=== PATIENT | female | born 1995 | race Caucasian/White ===

== ENCOUNTER → 2020-03-03 | Outpatient (CLI) | payer OTHER ==
--- NOTE | 2020-03-03 15:31 | RADIOLOGY REPORT (SQ) ---
EXAM DESCRIPTION: U/S THYROID/SFT TISS HD NECK IMAGES COMPLETED DATE/TIME: 03/03/2020 1:53 pm REASON FOR STUDY: E07.89 OTHER SPECIFIED DISORDERS OF THYROID J32.8 OTHER CHRONIC SINUSITIS E07.89 OTHER SPECIFIED DISORDERS OF THYROID COMPARISON: None. TECHNIQUE: Dynamic and static bobby-scale images acquired of the thyroid gland. Selected additional c olor/power Doppler images recorded. All images stored to PACS. LIMITATIONS: None. FINDINGS: RIGHT LOBE: The right lobe of the thyroid gland measures 4.2 x 1.2 x 1.1 cm, normal size. Homogeneous echotexture. No cystic or solid masses. LEFT LOBE: The left lobe of the thyroid gland measures 4.11.4 x 1.1 cm, normal size. Homogeneous ec hotexture. No cystic or solid masses. ISTHMUS: The isthmus measures 2.0 mm in AP diameter, normal size. Homogeneous echotexture. No cyst ic or solid masses. OTHER: No other significant finding. IMPRESSION: 1. Examination is unremarkable sonographically. TECHNICAL DOCUMENTATION: JOB ID: [id number] 2010 [employer]- All Rights Reserved Reading location - IP/workstation name: [email or web address]
--- NOTE | 2020-03-04 11:12 | RADIOLOGY REPORT (SQ) ---
EXAM DESCRIPTION: CT SINUSES FOR ENT IMAGES COMPLETED DATE/TIME: 03/03/2020 1:25 pm REASON FOR STUDY: J32.8 OTHER CHRONIC SINUSITIS J32.8 OTHER CHRONIC SINUSITIS E07.89 OTHER SPECIFI ED DISORDERS OF THYROID COMPARISON: None. TECHNIQUE: Noncontrast scanning through the paranasal sinuses using bone algorithm. Reconstructed MPR images reviewed. All images stored on PACS. Images acquired for image guided surgery. All CT scanners at this facility use dose modulation, iterative reconstruction, and/or weight based d osing when appropriate to reduce radiation dose to as low as reasonably achievable (ALARA). [facility]: Dose Right [facility]: CareDose [facility]: Dose Right [facility]: Teradose 4D [facility]: [employer] RADIATION DOSE: mGy. FINDINGS: NASAL PASSAGES: Clear. No polyps or masses. OSTEOMEATAL UNITS AND NASOFRONTAL DUCTS: Patent. MAXILLARY SINUSES: Well-pneumatized and clear. Maxillary sinus outlets are patent. ETHMOID SINUSES: Well-pneumatized and clear. SPHENOID SINUSES: Well-pneumatized and clear. FRONTAL SINUSES: Well-pneumatized and clear. MASTOID AIR CELLS: Clear. ORBITS: Normal and symmetrical. NASAL SEPTUM: Right deviation. TEMPOROMANDIBULAR JOINTS: Normal. TURBINATES: No pneumatized turbinates. OTHER: No other significant findings. IMPRESSION: 1. Generally clear paranasal sinuses. 2. Right nasal septal deviation. TECHNICAL DOCUMENTATION: JOB ID: [id number] Quality ID # [id number]: Final reports with documentation of one or more dose reduction techniques (e.g., Au tomated exposure control, adjustment of the mA and/or kV according to patient size, use of iterative reconstruction technique) 2010 [employer]- All Rights Reserved Reading location - IP/workstation name: [email or web address]
== END ==
LOC: RAD 13:10
PROVIDERS: ATTEND Otolaryngology
DX: J32.8 Other chronic sinusitis (principal); J34.2 Deviated nasal septum; E07.89 Other specified disorders of thyroid
CPT/HCPCS: 70486; 76536

== ENCOUNTER → 2020-04-21 | Outpatient (CLI) | payer OTHER | LOC: OD 09:43 | PROVIDERS: ATTEND Otolaryngology | DX: J30.81 Allergic rhinitis due to animal (cat) (dog) hair and dander (principal) | CPT/HCPCS: 36415; 82785; 86003 ==

== ENCOUNTER 2020-08-24 08:37 | Day surgery (SDC) | payer OTHER ==
[~2020-08-24 08:37] MED LIST: CEFAZOLIN 2 GM/D5W RTU 2 GM/50 ML RTUPB IV PRN
[2020-08-24] MEDS ORDERED: OXYMETAZOLINE HCL 0.05% NASAL SPRAY 15 ML BOTTLE ONE (09:26)
[2020-08-24] MEDS ORDERED: BUPIVACAINE HCL 0.5%/EPI 1:200000 INJ 1.8 ML CARTRIDGE ONE (09:26)
[2020-08-24] MEDS ORDERED: MINERAL OIL (STERILE) 10 ML VIAL ONE (09:26)
[2020-08-24] MEDS ORDERED: LIDOCAINE 1%/EPINEPHRINE INJ 20 ML VIAL ONE (09:26)
[2020-08-24] MEDS ORDERED: BACITRACIN ZINC OINTMENT 15 GM ONE (09:26)
[2020-08-24] MEDS ORDERED: SCOPOLAMINE HYDROBROMIDE 1.5 MG PATCH.TD72 TD ONE (09:30)
[2020-08-24] MEDS ORDERED: PROMETHAZINE HCL INJ 25 MG/1 ML VIAL ONE (09:38)
[2020-08-24] MEDS ORDERED: ONDANSETRON HCL INJ/PF 4 MG/2 ML SDV ONE (09:38)
[2020-08-24] MEDS ORDERED: HYDROMORPHONE HCL INJ/PF 2 MG/ML AMPULE ONE (09:39)
[2020-08-24] MEDS ORDERED: DEXAMETHASONE SOD PHOS INJ 10 MG/1 ML VIAL ONE (09:39)
[2020-08-24] MEDS ORDERED: FENTANYL CITRATE INJ/PF 100 MCG/2 ML AMPUL ONE (09:39)
[2020-08-24] MEDS ORDERED: MIDAZOLAM 2 MG/2 ML INJ ONE (09:39)
[2020-08-24] MEDS ORDERED: PROPOFOL INJ 200 MG/20 ML VIAL IV ONE (09:40)
[2020-08-24] MEDS ORDERED: SUCCINYLCHOLINE CHLORIDE INJ 200 MG/10 ML VIAL ONE (09:40)
[2020-08-24] MEDS ORDERED: PHENYLEPHRINE HCL INJ/PF 10 MG/1 ML SDV ONE (11:58)
[2020-08-24] MEDS: FENTANYL CITRATE INJ/PF 100 MCG/2 ML AMPUL ONE ×2 (13:50→14:00)
--- NOTE | 2020-09-02 23:09 | Operative Report ---
[facility]: DATE OF OPERATION: August 24, 2020 PREOPERATIVE DIAGNOSES: 1. Acute recurrent sinusitis/ARS 2. Nasal septal deviation, Acquired 3. Bilateral inferior turbinate hypertrophy 4. Nasal Deformities, Acquired 5. Chronic Nasal Dyspnea 6. Chronic rhinosinusitis/CRS 7. Bilateral chronic eustachian tube dysfunction 8. Bilateral middle turbinate hypertrophy 9. IOP/intraoperatively identified adenoid tissue hypertrophy and praveena hypertrophy POSTOPERATIVE DIAGNOSES: 1. Acute recurrent sinusitis/ARS 2. Nasal septal deviation, Acquired 3. Bilateral inferior turbinate hypertrophy 4. Nasal Deformities, Acquired 5. Chronic Nasal Dyspnea 6. Chronic rhinosinusitis/CRS 7. Bilateral chronic eustachian tube dysfunction 8. Bilateral middle turbinate hypertrophy 9. IOP/intraoperatively identified adenoid tissue hypertrophy and praveena hypertrophy PROCEDURES: 1. Bilateral FESS/functional endoscopic sinus surgery as follows: 2. Bilateral frontal sinus balloon sinuplasty via bilateral transnasal rigid surgical endoscopy 3. Bilateral maxillary sinus balloon sinuplasty via bilateral transnasal rigid surgical endoscopy 4. ETB/eustachian tube balloon plasty [place] [address] which [place] associated with the CPT code 55906 (a pharynx surgery code) with wRVU of 8.27 per side) and 30529 for rigid nasal surgical endoscopy facilitating ETB/eustachian tube balloon plasty 5. Septoplasty 6. Bilateral intramural inferior turbinate reductions using submucus resection techniques 7. Bilateral middle turbinate reductions 8. IOP/intraoperative decision to perform additional nasopharyngeal/pharynx procedures consisting of adenoid tissue ablation adjacent the Praveena. SURGEON: Dr. Jermain Lynn Anesthesia Staff: ANESTHESIA: General endotracheal tube anesthesia/GETA DRAINS: None SPONGE COUNT: Verified NEEDLE COUNT: Verified SPECIMEN/MATERIALS FORWARD TO THE LAB: None ESTIMATED BLOOD LOSS: TOTAL IV FLUIDS: COMPLICATIONS: None FINDINGS: 1. Moderate to severe nasal septal deviation involving cartilage and bone with bony deviation being severe. 2. There were no sinonasal polyps or drainage noted during surgery. 3. Bilateral middle and inferior turbinate hypertrophy. 4. Praveena and adenoid tissue hypertrophy especially adjacent the Praveena. INDICATIONS: This is a 25-year-old white female patient who was seen and evaluated in the [place] otolaryngology office. The patient was referred for and they complained of a history of acute recurrent and chronic sinusitis/sinus disease over the years, chronic bilateral eustachian tube dysfunction over the years, and chronic nasal dyspnea over the years. The patient has desired to undergo sinonasal and eustachian tube surgery to improve functional nasal a irflow, sinus symptoms, and eustachian tube symptoms, and overall quality of life. The procedure consisting of septoplasty, FESS/functional endoscopic sinus surgery, bilateral eustachian tube balloon plasty/pharyngeal procedures, bilateral nasal surgical endoscopy, and turbinate reductions, and all of the risks and complications were all discussed in detail with the patient. She voiced an understanding, agreed to proceed, and consent was obtained. DESCRIPTION OF OPERATIVE PROCEDURE: The patient was taken to the main operating room and placed on the operating room table in the supine position. Appropriate monitors were placed. Using mask and IV access general anesthesia was induced. The patient was then transorally intubated without difficulty. The table was next positioned for nasal surgery. The patient underwent a nasal examination and local anesthetic with epinephrine was administered to establish a nasal block. The patient next had two Afrin soaked neuropatties placed into each nasal passage. The patient was then prepped and draped in the usual fashion for nasal surgery. The neuropatties were removed and the patient underwent bilateral transnasal surgical endoscopic guidance of the bilateral eustachian tube balloon plasty system with balloon inserted into each eustachian tube complex and inflated to 12 aaron and held for 2 minutes on each side. Once complete suction electrocautery was utilized to perform adenoid tissue ablation adjacent the Praveena complexes under direct surgical endoscopic guidance bilateral. A hemitransfixion incision was next performed. There was elevation of the mucoperichondrial and mucoperiosteal flaps without difficulty. The bony cartilaginous junction was identified and divided and the most deviated portions of the bony and cartilaginous septum were removed and there was severe bony deviation to the right which was very rigid and required extra time and attention to mobilize. There was a greater than 1.5 X 1.5 cm cartilaginous L- Strut preserved. Findings as noted above. Attention was now turned to performing bilateral inferior turbinate reductions. The turbinate bipolar wand was used to make 2 - 3 intramural passes in each inferior turbinate. At this point the turbinate microdebrider system at a setting of 1500 RPM was used to perform bilateral inferior turbinate submucus resections. This was followed by use of the Lititz elevator to outfracture each inferior turbinate. Excessive/redundant mucosa at the anterior portion of the inferior turbinates was next trimmed with margins reapproximated with chromic suture. Findings as noted above. At this point the FESS/external endoscopic sinus surgery portion of the case was addressed in the following manner. Bilateral transnasal rigid surgical endoscopy and sinus surgical instrumentation to include a microdebrider system at a setting of 1500 RPM and the frontal sinus, maxillary sinus were utilized throughout this portion of the case. Each middle turbinate had been crosscl amped to create controlled fractures to be safely mobilized and sinus surgical instruments were used to debulk the anterior portion on each side. At this point the frontal sinus and maxillary sinus balloon sinuplasty systems were introduced into the bilateral frontal sinus recess/frontal sinus and bilateral maxillary sinus os and sinus with inflations being to 12 aaron at multiple locations on each side. Once complete the balloon sinuplasty systems were withdrawn from the nose. Findings as noted above. At this point the nose was thoroughly suctioned. Once complete the septum was repositioned in the midline. Cartilage which had been excised during the case was placed back between the mucosal flaps. At this point the mucosal flaps were reapproximated and the hemitransfixion incision was closed using Chromic suture. Next, positive septal absorbable nasal packing was placed around the middle turbinate. This was followed by placement of intranasal supporting material in each nasal passage insisting of a modified Merocel nasal pack with Afrin and bacitracin ointment, 1 per nasal passage that were secured at the caudal aspect with 4-0 Prolene suture. The nose was then cleaned and dried. Next, the patient was returned to the anesthesia staff and was allowed to emerge from general anesthesia. The patient was extubated in the main operating room and was then transported to the postanesthesia recovery unit in stable condition. There were no complications.
== END 2020-08-24 15:06 | disposition home or self-care (01) ==
LOC: SC 08:37
PROVIDERS: ATTEND Otolaryngology
DX: J34.2 Deviated nasal septum (principal); J34.3 Hypertrophy of nasal turbinates; J35.2 Hypertrophy of adenoids; H69.83 Other specified disorders of Eustachian tube, bilateral; J01.91 Acute recurrent sinusitis, unspecified; R09.82 Postnasal drip; J34.89 Other specified disorders of nose and nasal sinuses; R06.09 Other forms of dyspnea; J30.9 Allergic rhinitis, unspecified; H90.11 Conductive hearing loss, unilateral, right ear, with unrestricted hearing on the contralateral side; E07.89 Other specified disorders of thyroid; R53.82 Chronic fatigue, unspecified; Z01.812 Encounter for preprocedural laboratory examination; Z20.828 Contact with and (suspected) exposure to other viral communicable diseases
CPT/HCPCS: 87635; 00160; 31296; 31295; 42950; 30140; 42831; C1769; J2250; J3490 ×4; J3010; J1170; J2370; J2550; J0330; J2405; J2704; J1100; J0690; C9803; 160